=== PATIENT | male | born 1930 | race Caucasian/White ===

== ENCOUNTER → 2017-08-31 | Outpatient (CLI) | payer MEDICARE, OTHER ==
[2017-05-14 10:27] VITALS: BMI 26.6
[~2017-08-31] MED LIST: ACET-1862 PO; ACET-3017 PO; AMLO-96 PO; AMLO2.5T74 PO; ASPI81TA94 PO; ATOR20TA65 PO; CAR3.125 PO; CARV12.578 PO; CEPH-13 PO; CIPR-214 PO; CIPR-344 PO; DOCU-416 PO; FAMO-67 PO; FAMO20TA28 PO; HYDR-385 PO; HYDR-389 PO; HYDR-6016 PO; IBUP1TAB90 PO; IBUP800T37 PO; ONDA8TAB98 PO; PENI-24 PO; PHEN200T32 PO; SULF-198 PO; TAMS0.4C70 PO
== END ==
LOC: LAB 10:54
DX: N30.01 Acute cystitis with hematuria (principal)
CPT/HCPCS: 81001; 87088

== ENCOUNTER → 2018-04-15 | Outpatient (CLI) | payer MEDICARE, OTHER ==
[2017-05-14 10:27] VITALS: BMI 26.6
--- NOTE | 2018-04-15 16:38 | RADIOLOGY IMAGING REPORT ---
FACILITY: [facility] PATIENT NAME: Rui Nelson : 1930 MR: [id number] V: [id number] EXAM DATE: ORDERING PHYSICIAN: JOIE REDDY TECHNOLOGIST: [place] [facility] [place]ui [place] : 1930 Visit/Account:[id number] Date of Sevice: 04/15/2018 EXAMINATION: Left hip, 3 views including AP pelvis 04/15/2018 3:18 PM HISTORY: Left hip pain. Previous JOELLE. COMPARISON: None FINDINGS: Images include AP and frog-leg hip as well as AP pelvis. Lower AP view was also done to i nclude distal femoral ORIF. Patient status post JOELLE which articulates well. Minimal lucency along t he distal stem without definitive radiographic features of loosening. The patient has side plate and screw fixation of the distal femur and cerclage wiring along the diaphysis. The distal fracture is well-healed with residual posttraumatic cortical deformity. No acute bony finding within the pelvis. Pelvic calcifications presumably are phleboliths. IMPRESSION: 1. Previous left JOELLE which articulates well. Subtle lucency around the distal end of the femoral st em but no definitive features of loosening. 2. Previous ORIF of the distal left femur. Report Dictated By: Antonio Hurley MD at 04/15/2018 4:32 PM Report E-Signed By: Antonio Hurley MD at 04/15/2018 4:34 PM WSN:[email or web address]
== END ==
LOC: RAD 15:12
PROVIDERS: ATTEND Family Medicine
DX: Z96.642 Presence of left artificial hip joint (principal)

== ENCOUNTER 2018-05-26 10:39 | Emergency (ER) | payer MEDICARE, OTHER ==
[2017-05-14 10:27] VITALS: Wt 68.0 kg
[~2018-05-26 10:39] MED LIST changes: +AMLO-111 PO; -AMLO-96 PO; -AMLO2.5T74 PO; +AMLO2.5T76 PO
[2018-05-26] MEDS ORDERED: ENT KIT ONE (10:44)
[2018-05-26] MEDS ORDERED: ATOR20TA65 (10:53)
[2018-05-26] MEDS ORDERED: TRAM-420 (10:53)
--- NOTE | 2018-05-26 11:02 | ER Report ---
History and Physical Time Seen By MD: 10:59 Hx. of Stated Complaint: Patient woke up with nose bleed. States it has stopped now. HPI/ROS CHIEF COMPLAINT: Epistaxis HISTORY OF PRESENT ILLNESS: He is an 88-year-old male who states he woke up this morning and his nose was bleeding. He denies any traumatic injury. He denies any prior history of nosebleeds. He states that he is not on any anticoagulation. Denies any other symptoms. REVIEW OF SYSTEMS: Constitutional: No fever, no chills. Eyes: No discharge. ENT: No sore throat. Nosebleed Cardiovascular: No chest pain, no palpitations. Respiratory: No cough, no shortness of breath. Gastrointestinal: No abdominal pain, no vomiting. Allergies: Coded Allergies: No Known Drug Allergies (Unverified , 05/26/18) Home Meds Reported Medications Tramadol Hcl (TRAMADOL HCL) 50 Mg Tablet 05/26/18 Atorvastatin Calcium (ATORVASTATIN CALCIUM) 20 Mg Tablet 05/26/18 Acetaminophen (ARTHRITIS PAIN RELIEVER) 650 Mg Tablet.er, 650 MG PO BID 11/09/16 Tamsulosin Hcl (TAMSULOSIN HCL) 0.4 Mg Cap.er.24h, 0.4 MG PO DAILY, CAP 11/09/16 Discontinued Reported Medications Phenazopyridine Hcl (PHENAZOPYRIDINE HCL) 200 Mg Tablet, 200 MG PO TID PRN for SPASMS, #30 TAB 05/14/17 Famotidine (PEPCID) 20 Mg Tablet, 20 MG PO BID, #20 TAB 05/14/17 Sulfamethoxazole/Trimet 800-160 Mg Tab (BACTRIM DS TABLET) 1 Each Tablet, 1 TAB PO Q12H, #40 TAB 05/14/17 Acetaminophen With Codeine # 3 (TYLENOL WITH CODEINE #3 TABLET) 1 Each Tablet, 1 EACH PO Q6H PRN for PAIN, #20 TAB 05/14/17 Sulfamethoxazole/Trimet 800-160 Mg Tab (BACTRIM DS TABLET) 1 Each Tablet, 1 TAB PO BID, #30 TAB 05/11/17 Carvedilol (CARVEDILOL) 3.125 Mg Tab, 3.125 MG PO BID, TAB 11/09/16 Aspirin (ASPIRIN) 81 Mg Tab.chew, 81 MG PO QDAY, TAB.CHEW 05/28/16 Past Medical/Surgical History Hypertension Hx Smoking: Yes (2/3 PPD) Smoking Status: Current: Every Day Smoker Exposure to Second Hand Smoke?: No Hx Substance Use Disorder: No Hx Alcohol Use: No Constitutional Vital Sign - Last 24 Hours 05/26/18 05/26/18 05/26/18 05/26/18 10:44 10:45 11:00 11:30 Temp 98.6 Pulse 83 98 96 Resp 16 B/P (MAP) 192/98 168/102 (124) 145/102 (116) Pulse Ox 94 91 O2 Delivery Room Air Physical Exam General Appearance: The patient is alert, has no immediate need for airway protection and no current signs of toxicity. Eyes: Pupils equal and round no injection. ENT: TMs and canals clear bilaterally. Oropharynx is clear. Naris shows some oozing of blood at Kiesselbach's plexus mostly on the right naris. Respiratory: Chest is non tender, lungs are clear to auscultation. Cardiac: regular rate and rhythm [ ] Medical Decision Making ED Course/Re-evaluation ED Course 05/26/2018 11:01:50 am plan at this time will be to place a Kalyan-Synephrine lizandro al spray along with bacitracin. We'll observe the patient in the emergency department to determine if there will be need for further procedure 05/26/2018 11:25:42 am no further bleeding or discharge patient at this time. Decision to Disposition Date: May 26, 2018 Decision to Disposition Time: 11:25 Depart Departure Latest Vital Signs Vital Signs Date Time Temp Pulse Resp B/P (MAP) Pulse Ox O2 Delivery O2 Flow Rate FiO2 05/26/18 11:30 96 145/102 (116) 05/26/18 10:45 91 05/26/18 10:44 98.6 16 Room Air Impression: Primary Impression: Epistaxis Condition: Improved Disposition: HOME OR SELF-CARE Referrals: JOIE REDDY MD (PCP) Follow-up for your next routine health maintenance exam. Patient Instructions: Nosebleed (GEN) Additional Instructions: Take your prescription medications as directed. TUCKER BRAVO MD May 26, 2018 11:02
[2018-05-26 11:30] VITALS: BP 145/102
[2018-05-26] MEDS ORDERED: OXYMETAZOLINE 0.05% 30 ML BTL SCH (11:30)
[2018-05-26] MEDS ORDERED: PHENYLEPHRINE 0.5% 15 ML BTL ONE (11:45)
== END 2018-05-26 11:38 | disposition home or self-care (01) ==
LOC: ER 11:11
DX: R04.0 Epistaxis (principal)
CPT/HCPCS: 30901; 99282; A9270

== ENCOUNTER 2018-05-27 12:39 | Emergency (ER) | payer MEDICARE, OTHER ==
[2017-05-14 10:27] VITALS: Wt 68.0 kg
--- NOTE | 2018-05-27 12:47 | ER Report ---
History and Physical Time Seen By MD: 12:47 HPI/ROS CHIEF COMPLAINT: Weakness HISTORY OF PRESENT ILLNESS: This is an 88-year-old male who presents to the emergency department via EMS for weakness. Patient was seen and evaluated in the emergency department yesterday for nosebleed which did resolve. Patient states that last night he got up around 12:30 in the morning to go to the bathroom, the next thing he knows he woke up on the ground unsure if he was there for an extended period of time, did call his daughter she came over around 1:00 a ssisted him to bed, patient then got up this morning with some generalized weakness not feeling well, got to his lazy boy and states that he was just unable to get up after that. Patient called his daughter again. They contacted EMS, the patient was subsequently transferred to the emergency Department. Patient denies headaches, no C-spine tenderness. Patient does have left hip pain, he states that this does happen intermittently with his previous total hip replacement. He also has right shoulder pain which is intermittent as well due to arthritis. No fevers or chills. No nausea or vomiting. No chest pain or shortness of breath. No nosebleed today. Patient states that his stool was dark last night, he feels that this is from swallowing so much blood during his nosebleed yesterday. No active bleeding at this time. Patient was noted to have bigeminal beats and hypertension en route to the ER. REVIEW OF SYSTEMS: Constitutional: No fever, no chills. Eyes: No discharge. ENT: No sore throat. Cardiovascular: No chest pain, no palpitations. Respiratory: No cough, no shortness of breath. Gastrointestinal: No abdominal pain, no vomiting. Genitourinary: No hematuria. Musculoskeletal: As above. Skin: No rashes. Neurological: As above.. Allergies: Coded Allergies: No Known Drug Allergies (Unverified , 05/27/18) Home Meds Reported Medications Tramadol Hcl (TRAMADOL HCL) 50 Mg Tablet 05/26/18 Atorvastatin Calcium (ATORVASTATIN CALCIUM) 20 Mg Tablet 05/26/18 Acetaminophen (ARTHRITIS PAIN RELIEVER) 650 Mg Tablet.er, 650 MG PO BID 11/09/16 Tamsulosin Hcl (TAMSULOSIN HCL) 0.4 Mg Cap.er.24h, 0.4 MG PO DAILY, CAP 11/09/16 Discontinued Reported Medications Phenazopyridine Hcl (PHENAZOPYRIDINE HCL) 200 Mg Tablet, 200 MG PO TID PRN for SPASMS, #30 TAB 05/14/17 Famotidine (PEPCID) 20 Mg Tablet, 20 MG PO BID, #20 TAB 05/14/17 Sulfamethoxazole/Trimet 800-160 Mg Tab (BACTRIM DS TABLET) 1 Each Tablet, 1 TAB PO Q12H, #40 TAB 05/14/17 Acetaminophen With Codeine # 3 (TYLENOL WITH CODEINE #3 TABLET) 1 Each Tablet, 1 EACH PO Q6H PRN for PAIN, #20 TAB 05/14/17 Sulfamethoxazole/Trimet 800-160 Mg Tab (BACTRIM DS TABLET) 1 Each Tablet, 1 TAB PO BID, #30 TAB 05/11/17 Carvedilol (CARVEDILOL) 3.125 Mg Tab, 3.125 MG PO BID, TAB 11/09/16 Aspirin (ASPIRIN) 81 Mg Tab.chew, 81 MG PO QDAY, TAB.CHEW 05/28/16 Past Medical/Surgical History The patient has a past medical and surgical history of CVA, hypertension, frequent PVCs, hypercholesterolemia, smoking for over 7 years, chronic constipation, GERD, bladder cancer, with frequency urgency and dribbling, prostatitis, left ankle fracture, arthritis, left wrist fracture, pelvis fracture, femur fracture with hardware wears glasses, hard of hearing, wears dentures, chemotherapy for bladder cancer, left total hip with revisions 3. Reviewed Nurses Notes: Yes Hx Smoking: Yes (2/3 PPD) Smoking Status: Current: Every Day Smoker Exposure to Second Hand Smoke?: No Hx Substance Use Disorder: No Hx Alcohol Use: No Constitutional Vital Sign - Last 24 Hours 05/27/18 05/27/18 05/27/18 05/27/18 12:40 12:44 12:54 13:00 Temp 98.0 Pulse 71 Resp 18 38 B/P (MAP) 185/100 185/100 (128) 174/97 (122) Pulse Ox 95 78 O2 Delivery Room Air 05/27/18 05/27/18 05/27/18 05/27/18 13:09 13:14 13:29 13:30 Pulse 72 74 Resp 17 20 18 B/P (MAP) 159/108 (125) Pulse Ox 89 91 90 05/27/18 05/27/18 05/27/18 05/27/18 13:44 13:49 14:00 14:04 Pulse 73 75 63 Resp 18 20 B/P (MAP) 200/103 (135) Pulse Ox 91 95 96 05/27/18 05/27/18 05/27/18 05/27/18 14:19 14:30 14:34 14:39 Pulse 77 66 65 Resp 16 17 36 B/P (MAP) 168/85 (112) Pulse Ox 96 87 94 05/27/18 05/27/18 05/27/18 05/27/18 14:54 15:00 15:09 15:30 Pulse 66 77 Resp 29 16 B/P (MAP) 186/101 (129) 162/115 (131) Pulse Ox 89 94 05/27/18 05/27/18 05/27/18 05/27/18 15:39 15:44 15:54 15:59 Pulse 67 63 55 Resp 25 23 20 B/P (MAP) 193/102 (132) 178/98 (124) Pulse Ox 95 97 96 Physical Exam General Appearance: The patient is alert, has no immediate need for airway protection and no signs of toxicity, now wearing his dentures, difficult to understand. Eyes: Pupils equal and round no pallor or injection. EOMs intact, slight 1-2 beat nystagmus in the lateral gaze bilaterally, otherwise unremarkable. ENT, Mouth: Mucous membranes are dry, geographic tongue. All teeth have been removed. Respiratory: There are no retractions, lungs are clear to auscultation. Cardiovascular: Regular rate and rhythm, distant, no murmurs, clicks or rubs. Gastrointestinal: Abdomen is soft and non tender, no masses, bowel sounds normal. Neurological: Alert and oriented 4. Moving all extremities. Following all commands. No focal neuro deficits. No pronator drift. Sensation intact in all extremities. No facial droop or deviation of the tongue. Skin: Warm and dry, no rashes. Musculoskeletal: Neck is supple non tender. Extremities slight tenderness with very firm palpation. Left hip, left leg is notably shorter than the right. DIFFERENTIAL DIAGNOSIS: After history and physical exam differential diagnosis was considered for CVA, TIA, myocardial infarction, syncopal episode, vasovagal and hip dislocation. Medical Decision Making Data Points Result Diagram: 05/27/18 1230 05/27/18 1230 Laboratory Hematology Test 05/27/18 12:30 05/27/18 15:18 Red Blood Count 4.34 M/uL (4.00-5.60) Mean Corpuscular Volume 94.7 fL (80.0-96.0) Mean Corpuscular Hemoglobin 32.1 pg (26.0-33.0) Mean Corpuscular Hemoglobin Concent 33.9 g/dL (32.0-36.0) Red Cell Distribution Width 14.0 % (11.5-14.5) Mean Platelet Volume 10.3 fL (7.2-11.1) Neutrophils (%) (Auto) 49.7 % (39.4-72.5) Lymphocytes (%) (Auto) 39.4 % (17.6-49.6) Monocytes (%) (Auto) 7.0 % (4.1-12.4) Eosinophils (%) (Auto) 3.3 % (0.4-6.7) Basophils (%) (Auto) 0.6 % (0.3-1.4) Nucleated RBC Relative Count (auto) 0.1 /100WBC Neutrophils # (Auto) 4.6 K/uL (2.0-7.4) Lymphocytes # (Auto) 3.6 K/uL (1.3-3.6) Monocytes # (Auto) 0.6 K/uL (0.3-1.0) Eosinophils # (Auto) 0.3 K/uL (0.0-0.5) Basophils # (Auto) 0.1 K/uL (0.0-0.1) Nucleated RBC Absolute Count (auto) 0.01 K/uL Sodium Level 141 mmol/L (137-145) Potassium Level 3.2 mmol/L (3.5-5.0) Chloride Level 105 mmol/L (98-107) Carbon Dioxide Level 20 mmol/L (22-30) Blood Urea Nitrogen 36 mg/dl (9-21) Creatinine 2.90 mg/dl (0.66-1.25) Glomerular Filtration Rate Calc 20.7 Random Glucose 112 mg/dl (75-110) Calcium Level 8.6 mg/dl (8.4-10.2) Magnesium Level 2.1 mg/dl (1.7-2.2) Total Bilirubin 0.9 mg/dl (0.2-1.3) Aspartate Amino Transf (AST/SGOT) 38 U/L (0-35) Alanine Aminotransferase (ALT/SGPT) 45 U/L (0-56) Alkaline Phosphatase 137 U/L (0-126) Troponin I < 0.012 ng/ml Total Protein 7.4 g/dl (6.3-8.2) Albumin 4.4 g/dl (3.5-5.0) Urine Color Yellow Urine Clarity Slightly-cloudy Urine pH 5.0 pH (4.8-9.5) Urine Specific [place] 1.016 Urine Protein 30 mg/dL (NEGATIVE) Urine Glucose (UA) Negative mg/dL (NEGATIVE) Urine Ketones Negative mg/dL (NEGATIVE) Urine Blood Small (NEGATIVE) Urine Nitrite Negative (NEGATIVE) Urine Bilirubin Negative (NEGATIVE) Urine Urobilinogen Negative mg/dL (0.2-1.9) Urine Leukocyte Esterase Small (NEGATIVE) Urine RBC 1 /HPF (0-2/HPF) Urine WBC 13 /HPF (0-5/HPF) Urine Squamous Epithelial Cells Many /LPF (</=FEW) Urine Bacteria Negative /HPF (NONE-FEW) Urine Mucus None /HPF (NONE-FEW) Chemistry Test 05/27/18 12:30 05/27/18 15:18 White Blood Count 9.2 k/uL (4.5-11.0) Red Blood Count 4.34 M/uL (4.00-5.60) Hemoglobin 13.9 g/dL (14.0-18.0) Hematocrit 41.1 % (42.0-52.0) Mean Corpuscular Volume 94.7 fL (80.0-96.0) Mean Corpuscular Hemoglobin 32.1 pg (26.0-33.0) Mean Corpuscular Hemoglobin Concent 33.9 g/dL (32.0-36.0) Red Cell Distribution Width 14.0 % (11.5-14.5) Platelet Count 163 K/uL (150-450) Mean Platelet Volume 10.3 fL (7.2-11.1) Neutrophils (%) (Auto) 49.7 % (39.4-72.5) Lymphocytes (%) (Auto) 39.4 % (17.6-49.6) Monocytes (%) (Auto) 7.0 % (4.1-12.4) Eosinophils (%) (Auto) 3.3 % (0.4-6.7) Basophils (%) (Auto) 0.6 % (0.3-1.4) Nucleated RBC Relative Count (auto) 0.1 /100WBC Neutrophils # (Auto) 4.6 K/uL (2.0-7.4) Lymphocytes # (Auto) 3.6 K/uL (1.3-3.6) Monocytes # (Auto) 0.6 K/uL (0.3-1.0) Eosinophils # (Auto) 0.3 K/uL (0.0-0.5) Basophils # (Auto) 0.1 K/uL (0.0-0.1) Nucleated RBC Absolute Count (auto) 0.01 K/uL Glomerular Filtration Rate Calc 20.7 Calcium Level 8.6 mg/dl (8.4-10.2) Magnesium Level 2.1 mg/dl (1.7-2.2) Total Bilirubin 0.9 mg/dl (0.2-1.3) Aspartate Amino Transf (AST/SGOT) 38 U/L (0-35) Alanine Aminotransferase (ALT/SGPT) 45 U/L (0-56) Alkaline Phosphatase 137 U/L (0-126) Troponin I < 0.012 ng/ml Total Protein 7.4 g/dl (6.3-8.2) Albumin 4.4 g/dl (3.5-5.0) Urine Color Yellow Urine Clarity Slightly-cloudy Urine pH 5.0 pH (4.8-9.5) Urine Specific [place] 1.016 Urine Protein 30 mg/dL (NEGATIVE) Urine Glucose (UA) Negative mg/dL (NEGATIVE) Urine Ketones Negative mg/dL (NEGATIVE) Urine Blood Small (NEGATIVE) Urine Nitrite Negative (NEGATIVE) Urine Bilirubin Negative (NEGATIVE) Urine Urobilinogen Negative mg/dL (0.2-1.9) Urine Leukocyte Esterase Small (NEGATIVE) Urine RBC 1 /HPF (0-2/HPF) Urine WBC 13 /HPF (0-5/HPF) Urine Squamous Epithelial Cells Many /LPF (</=FEW) Urine Bacteria Negative /HPF (NONE-FEW) Urine Mucus None /HPF (NONE-FEW) Urinalysis Test 05/27/18 15:18 Urine Color Yellow Urine Clarity Slightly-cloudy Urine pH 5.0 pH (4.8-9.5) Urine Specific [place] 1.016 Urine Protein 30 mg/dL (NEGATIVE) Urine Glucose (UA) Negative mg/dL (NEGATIVE) Urine Ketones Negative mg/dL (NEGATIVE) Urine Blood Small (NEGATIVE) Urine Nitrite Negative (NEGATIVE) Urine Bilirubin Negative (NEGATIVE) Urine Urobilinogen Negative mg/dL (0.2-1.9) Urine Leukocyte Esterase Small (NEGATIVE) Urine RBC 1 /HPF (0-2/HPF) Urine WBC 13 /HPF (0-5/HPF) Urine Squamous Epithelial Cells Many /LPF (</=FEW) Urine Bacteria Negative /HPF (NONE-FEW) Urine Mucus None /HPF (NONE-FEW) EKG/Imaging EKG Interpretation 12 lead EKG: Time of EKG 1242. Rhythm: Sinus rhythm with frequent PVCs, ventricular rate 85 bpm. [place]: normal QRS: normal ST segments: No ST depression or elevation identified. Changes noted on the current EKG when compared to the 11/16/2016 EKG, previous EKG showing no signs of PVCs, also showing a 1st degree AV block, currently no 1st degree AV block identified. Imaging Location: [facility] - [place] Patient: Rui Nelson : 1930 Visit/Account:[id number] Date of Sevice: 05/27/2018 CHEST SINGLE AP INDICATION: Recent fall COMPARISON: 11/16/2016 FINDINGS: Heart size within normal limits. There is no focal infiltrate or lobar consolidation. There is no pneumothorax or pleural effusion. IMPRESSION: 1. No acute cardiopulmonary process. Report Dictated By: Cornel Reed at 05/27/2018 1:57 PM Report E-Signed By: Cornel Reed at 05/27/2018 1:58 PM WSN:[id number] Location: [facility] - [place] Patient: Rui Nelson : 1930 Visit/Account:[id number] Date of Sevice: 05/27/2018 EXAMINATION: CT head without IV contrast HISTORY: Fall last night, weakness today, unsure if loss of consciousness. COMPARISON: CT head from 01/23/2016. TECHNIQUE: Contiguous axial images were obtained from the skull base to the vertex without intravenous contrast. Sagittal and coronal reformatted images are also submitted. One of the following dose optimization techniques was utilized in the performance of this exam: Automated exposure control; adjustment of the mA and/or kV according to the patient's size; or use of an iterative reconstruction technique. Specific details can be referenced in the facility's radiology CT exam operational policy. FINDINGS: Brain volume: Mild generalized atrophy with associated concordant prominence of the ventricular system. Ventricles: Normal. Acute ischemic changes: None. Hemorrhage: No acute intracranial hemorrhage. Masses/edema: None. Rehman-white: Chronic lacunar infarcts in both basal ganglia and a small chronic infarct in the left posterior frontal lobe. White matter: Patchy hypodensities in the deep white matter bilaterally. Vessels: Calcified plaque of both carotid siphons. Extra-axial: Negative. Calvarium/scalp: No acute fracture. Skull base/visualized face: Negative. Visualized sinuses/orbits: Mild patchy mucosal thickening of the paranasal sinuses. There is mild nasal septal deviation to the left. Previous lens surgery bilaterally. IMPRESSION: 1. No acute fracture, hemorrhage or intracranial mass lesion. No CT evidence of acute infarct. 2. Moderate nonspecific white matter disease is suspicious for chronic small vessel ischemia and is unchanged. 2. Chronic lacunar infarcts in both basal ganglia and a small chronic infarct in the left posterior frontal lobe are unchanged. Report Dictated By: Carina Main MD at 05/27/2018 2:05 PM Report E-Signed By: Carina Main MD at 05/27/2018 2:15 PM WSN:[id number] Location: [facility] - [place] Patient: Rui Nelson : 1930 Visit/Account:[id number] Date of Sevice: 05/27/2018 HIP LEFT Indication: Pain after fall Comparison: None available Findings: There is a two part JOELLE. Addition, lateral femoral plate and cerclage wires are noted. Mild protrusio defect is seen involving the acetabulum. No acute fractures identified. IMPRESSION: 1. No evidence of fracture or dislocation of the patient's left total hip arthroplasty Report Dictated By: Cornel Reed at 05/27/2018 2:16 PM Report E-Signed By: Cornel Reed at 05/27/2018 2:17 PM WSN:[email or web address] ED Course/Re-evaluation Clinical Indication for ER IV: Hydration, IV Access ED Course The patient was admitted to a room. History and physical were obtained. Differential diagnoses were considered. IV was started. A CBC, CMP were obtained. A 500 mL normal saline bolus was given. H&H 13.9 and 41.1, consistent with his previous H&H studies. Potassium 3.2, BUN 36, creatinine 2.9, these are consistent with previous chemistry studies. Negative troponin. CT of the head wa s negative for any acute intracranial abnormalities, single view chest x-ray negative for any acute cardiopulmonary process. Left hip and pelvis showing no acute changes from previous surgeries, no acute findings. I did review the xrays with the patient and his family, I did tell them it is possible he had a near syncopal episode from decreased fluid intake. He did respond well to the bolus given in the ED. UA contaminated with some blood noted, I did send out for a culture. The patient's blood pressure did remain elevated while in the ED, he states he does take his BP meds in the AM, did take them today. Currently he is asymptomatic. I did end up giving 10mg IV Labetalol, which did bring his last pressure down to 170/98. I did instruct him to follow up with his PCP next week for reevaluation as well as further discussion of his blood pressures. The patient expressed understanding and was discharged home with his daughter. Decision to Disposition Date: May 27, 2018 Decision to Disposition Time: 16:05 Depart Departure Latest Vital Signs Vital Signs Date Time Temp Pulse Resp B/P (MAP) Pulse Ox O2 Delivery O2 Flow Rate FiO2 05/27/18 15:59 55 20 178/98 (124) 96 05/27/18 12:40 98.0 Room Air Impression: Primary Impression: Left hip pain Additional Impression: Fall Condition: Improved Disposition: HOME OR SELF-CARE Referrals: JOIE REDDY MD (PCP) 1 Week Patient Instructions: Fall Prevention (ED), Fall Prevention for Older Adults (GEN) Additional Instructions: Your blood work today is unchanged from your previous studies. Be sure to keep your follow appointment with your chemical checker. Follow up with Dr. Reddy in one week for reevaluation. Be sure to use the walker. The episode you had last night could have been because you are not drink enough water and had a fainting spell, so be sure to drink plenty of water. Get plenty of rest. Return to the ED for any other concerns or worsening symptoms. Problem Qualifiers Additional Impression: Fall Encounter type: initial encounter Qualified Codes: W19.XXXA - Unspecified fall, initial encounter BERNARD CAST GRINDER-BC May 27, 2018 12:47
[2018-05-27] MEDS ORDERED: NS(*) 0.9% 500 ML BAG 500 ML IV ONE ×2 (13:07→14:30)
[2018-05-27 13:18] LABS: PLATELET COUNT, AUTOMATED 163 K/uL (150-450)
--- NOTE | 2018-05-27 13:20 | EKG ---
FACILITY: [facility] - [place] PATIENT NAME: JOE BARAJAS : [id number] MR: [id number] V: [id number] EXAM DATE: ORDERING PHYSICIAN: BERNARD CAST TECHNOLOGIST: KATEY Test Reason : FELL Blood Pressure : / mmHG Vent. Rate : 085 BPM Atrial Rate : 085 BPM P-R Int : 180 ms QRS Dur : 080 ms QT Int : 380 ms P-R-T Axes : 061 069 061 degrees QTc Int : 452 ms Sinus rhythm with frequent premature ventricular complexes Otherwise normal ECG Confirmed by CHRISTINE FULLER ([id number]) on 05/27/2018 1:34:49 PM Referred By: LAWRENCE Confirmed By:CHRISTINE FULLER
--- NOTE | 2018-05-27 14:03 | RADIOLOGY IMAGING REPORT ---
FACILITY: [facility] - [place] PATIENT NAME: Rui Nelson : 1930 MR: [id number] V: [id number] EXAM DATE: ORDERING PHYSICIAN: BERNARD CAST TECHNOLOGIST: Location: [facility] - [place] Patient: Rui Nelson : 1930 Visit/Account:[id number] Date of Sevice: 05/27/2018 CHEST SINGLE AP INDICATION: Recent fall COMPARISON: 11/16/2016 FINDINGS: Heart size within normal limits. There is no focal infiltrate or lobar consolidation. There is no pneumothorax or pleural effusion. IMPRESSION: 1. No acute cardiopulmonary process. Report Dictated By: Cornel Reed at 05/27/2018 1:57 PM Report E-Signed By: Cornel Reed at 05/27/2018 1:58 PM WSN:[email or web address]
--- NOTE | 2018-05-27 14:21 | RADIOLOGY IMAGING REPORT ---
FACILITY: [facility] - [place], [place] PATIENT NAME: Rui Nelson : 1930 MR: [id number] V: [id number] EXAM DATE: [id number] ORDERING PHYSICIAN: BERNARD CAST TECHNOLOGIST: Location: [facility] [place] Patient: Rui Nelson : 1930 Visit/Account:[id number] Date of Sevice: 05/27/2018 EXAMINATION: CT head without IV contrast HISTORY: Fall last night, weakness today, unsure if loss of consciousness. COMPARISON: CT head from 01/23/2016. TECHNIQUE: Contiguous axial images were obtained from the skull base to the vertex without intraven ous contrast. Sagittal and coronal reformatted images are also submitted. One of the following dose optimization techniques was utilized in the performance of this exam: Autom ated exposure control; adjustment of the mA and/or kV according to the patient's size; or use of an i terative reconstruction technique. Specific details can be referenced in the facility's radiology C T exam operational policy. FINDINGS: Brain volume: Mild generalized atrophy with associated concordant prominence of the ventricular syst em. Ventricles: Normal. Acute ischemic changes: None. Hemorrhage: No acute intracranial hemorrhage. Masses/edema: None. Rehman-white: Chronic lacunar infarcts in both basal ganglia and a small chronic infarct in the left po sterior frontal lobe. White matter: Patchy hypodensities in the deep white matter bilaterally. Vessels: Calcified plaque of both carotid siphons. Extra-axial: Negative. Calvarium/scalp: No acute fracture. Skull base/visualized face: Negative. Visualized sinuses/orbits: Mild patchy mucosal thickening of the paranasal sinuses. There is mild n clint septal deviation to the left. Previous lens surgery bilaterally. IMPRESSION: 1. No acute fracture, hemorrhage or intracranial mass lesion. No CT evidence of acute infarct. 2. Moderate nonspecific white matter disease is suspicious for chronic small vessel ischemia and is unchanged. 2. Chronic lacunar infarcts in both basal ganglia and a small chronic infarct in the left posterior frontal lobe are unchanged. Report Dictated By: Carina Main MD at 05/27/2018 2:05 PM Report E-Signed By: Carina Main MD at 05/27/2018 2:15 PM [id number]
--- NOTE | 2018-05-27 14:23 | RADIOLOGY IMAGING REPORT ---
FACILITY: [facility] PATIENT NAME: Rui Nelson : 1930 MR: [id number] V: [id number] EXAM DATE: ORDERING PHYSICIAN: BERNARD CAST TECHNOLOGIST: Location: [facility] Patient: Rui Nelson : 1930 Visit/Account:[id number] Date of Sevice: 05/27/2018 HIP LEFT Indication: Pain after fall Comparison: None available Findings: There is a two part JOELLE. Addition, lateral femoral plate and cerclage wires are noted. Mild protrus io defect is seen involving the acetabulum. No acute fractures identified. IMPRESSION: 1. No evidence of fracture or dislocation of the patient's left total hip arthroplasty Report Dictated By: Cornel Reed at 05/27/2018 2:16 PM Report E-Signed By: Cornel Reed at 05/27/2018 2:17 PM [id number]
[2018-05-27] MEDS ORDERED: LABETALOL HCL 100 MG/20ML VIAL IVP ONE (15:50)
[2018-05-27 15:59] VITALS: BP 178/98
[2018-05-28] MEDS ORDERED: AMLO-111 PO (21:28)
== END 2018-05-27 16:05 | disposition home or self-care (01) ==
LOC: ER 12:59
DX: M25.552 Pain in left hip (principal); R03.0 Elevated blood-pressure reading, without diagnosis of hypertension; W19.XXXA Unspecified fall, initial encounter
CPT/HCPCS: 70450; 71045; 73502; 81001; 83735; 84484; 85025; 87088; 93005; 96361; 96374; 99284; J3490; J7040; 82040; 82247; 82310; 82374; 82435; 82565; 82947; 84075; 84132; 84155; 84295; 84450; 84460; 84520

== ENCOUNTER → 2018-05-27 | Outpatient (CLI) | payer MEDICARE, OTHER ==
[2017-05-14 10:27] VITALS: BMI 26.6
[~2018-05-27] MED LIST changes: +ATOR20TA65; +TRAM-420
== END ==
LOC: AMB 12:12
PROVIDERS: ATTEND Nurse Practitioner
DX: R53.1 Weakness (principal); R42 Dizziness and giddiness
CPT/HCPCS: A0425; A0427

== ENCOUNTER 2018-05-28 20:15 | Emergency (ER) | payer MEDICARE, OTHER ==
[2017-05-14 10:27] VITALS: Wt 68.0 kg
[~2018-05-28 20:15] MED LIST changes: -DOCU100T19 PO
--- NOTE | 2018-05-28 20:18 | ER Report ---
History and Physical Time Seen By MD: :18 HPI/ROS CHIEF COMPLAINT: nosebleed HISTORY OF PRESENT ILLNESS: This is an 88 year old male. He has a nose bleed tonight, for about an hour prior to coming in, unable to get it stopped. Was here in the ER 2 days ago for the same. Conservative measures helped it stop. Blood pressure has been elevated, but he is not on anything for this now. No other bleeding. He is not on blood thinners. No chest pain or shortness of breath. Allergies: Coded Allergies: No Known Drug Allergies (Unverified , 05/28/18) Home Meds Active Scripts Amlodipine Besylate (AMLODIPINE BESYLATE) 5 Mg Tablet, 1 TAB PO QDAY, #30 TAB 0 Refills Prov:EDSON UMAÑA MD 05/28/18 Reported Medications Tramadol Hcl (TRAMADOL HCL) 50 Mg Tablet 05/26/18 Atorvastatin Calcium (ATORVASTATIN CALCIUM) 20 Mg Tablet 05/26/18 Acetaminophen (ARTHRITIS PAIN RELIEVER) 650 Mg Tablet.er, 650 MG PO BID 11/09/16 Tamsulosin Hcl (TAMSULOSIN HCL) 0.4 Mg Cap.er.24h, 0.4 MG PO DAILY, CAP 11/09/16 Discontinued Reported Medications Phenazopyridine Hcl (PHENAZOPYRIDINE HCL) 200 Mg Tablet, 200 MG PO TID PRN for SPASMS, #30 TAB 05/14/17 Famotidine (PEPCID) 20 Mg Tablet, 20 MG PO BID, #20 TAB 05/14/17 Sulfamethoxazole/Trimet 800-160 Mg Tab (BACTRIM DS TABLET) 1 Each Tablet, 1 TAB PO Q12H, #40 TAB 05/14/17 Acetaminophen With Codeine # 3 (TYLENOL WITH CODEINE #3 TABLET) 1 Each Tablet, 1 EACH PO Q6H PRN for PAIN, #20 TAB 05/14/17 Sulfamethoxazole/Trimet 800-160 Mg Tab (BACTRIM DS TABLET) 1 Each Tablet, 1 TAB PO BID, #30 TAB 05/11/17 Carvedilol (CARVEDILOL) 3.125 Mg Tab, 3.125 MG PO BID, TAB 11/09/16 Aspirin (ASPIRIN) 81 Mg Tab.chew, 81 MG PO QDAY, TAB.CHEW 05/28/16 Reviewed Nurses Notes: Yes Hx Smoking: Yes (2/3 PPD) Smoking Status: Current: Every Day Smoker Exposure to Second Hand Smoke?: No Hx Substance Use Disorder: No Hx Alcohol Use: No Constitutional Vital Sign - Last 24 Hours 05/28/18 05/28/18 05/28/18 05/28/18 20:15 20:15 20:30 20:45 Temp 98.4 Pulse ??? 93 93 80 Resp 20 B/P (MAP) 208/112 (144) 208/112 Pulse Ox 95 92 91 O2 Delivery Room Air 05/28/18 05/28/18 05/28/18 05/28/18 21:00 21:08 21:13 21:28 Pulse 81 81 93 B/P (MAP) 173/90 (117) Pulse Ox 93 91 91 05/28/18 05/28/18 21:30 21:43 Pulse ??? B/P (MAP) 210/112 (144) Physical Exam General Appearance: The patient is alert, has no immediate need for airway protection and no current signs of toxicity. Eyes: Pupils equal and round no injection. ENT: Normal oral mucosa. Blood in post-nasal area. Nose with lots of clots and oozing from right nasal passage. Unable to see bleeding on initial evaluation. Neck: Neck is supple and non tender. Respiratory: Chest is non tender, lungs are clear to auscultation. Cardiac: regular rate and rhythm Neuro: Alert and oriented x3 Skin: No rashes or lesions. No bruising. DIFFERENTIAL DIAGNOSIS: After history and physical exam differential diagnosis w as considered for epistaxis and hypertension Medical Decision Making ED Course/Re-evaluation ED Course Blood pressure elevated so the patient was started on 5 mg of amlodipine and will be continued on this medication. Procedure: Epistaxis control. Initially treated with compression with a nasal clamp. The patient had continued bleeding. We then used Neosynephrine nasal spray to try and acheive some vasoconstriction to slow or stop the bleeding. We also used some atomized 1% lidocaine with epinephrine, 0.5cc in the nasal passage. Also atomized 1 cc of tranexamic acid into the nasal passage. Then applied cotton ball soaked with Marte eczema casted in the nasal passage and reapplied the clamp. Reevaluated and there was no further bleeding. Applied some bacitracin ointment to the outside of the anterior of the right nasal passage. The bleeding was identified and was on the anterior nasal septum. Following the procedure the patient was re- examined and the bleeding was well controlled. The patient tolerated the procedure well. The procedure was performed by myself. Decision to Disposition Date: May 28, 2018 Decision to Disposition Time: 21:27 Depart Departure Latest Vital Signs Vital Signs Date Time Temp Pulse Resp B/P (MAP) Pulse Ox O2 Delivery O2 Flow Rate FiO2 05/28/18 21:43 ??? 05/28/18 21:30 210/112 (144) 05/28/18 21:28 91 05/28/18 20:15 98.4 20 Room Air Impression: Primary Impression: Epistaxis Additional Impression: Hypertension Condition: Improved Disposition: HOME OR SELF-CARE Referrals: JOIE REDDY MD (PCP) New Scripts Amlodipine Besylate (AMLODIPINE BESYLATE) 5 Mg Tablet 1 TAB PO QDAY, #30 TAB 0 Refills Prov: EDSON UMAÑA MD 05/28/18 Patient Instructions: Hypertension (ED), Nosebleed (ED) Additional Instructions: Take Amlodipine 5mg once a day for blood pressure. Follow-up with ENT for re-evaluation for the nose bleeds. Problem Qualifiers Additional Impression: Hypertension Hypertension type: unspecified Qualified Codes: I10 - Essential (primary) hypertension EDSON UMAÑA MD May 28, 2018 20:18
[2018-05-28] MEDS ORDERED: TRANEXAMIC AC 1000 MG/10ML SDV 1,000 MG in NS(*) 0.9% 50 ML BAG 50 ML ONE (20:20)
[2018-05-28] MEDS ORDERED: ENT KIT ONE (20:20)
[2018-05-28] MEDS ORDERED: amLODIPine BESYL(*) 5 MG TAB PO ONE (21:10)
[2018-05-28] MEDS ORDERED: AMLO-111 PO (21:28)
[2018-05-28 21:30] VITALS: BP 210/112
== END 2018-05-28 21:40 | disposition home or self-care (01) ==
LOC: ER 20:33
DX: R04.0 Epistaxis (principal); I10 Essential (primary) hypertension
CPT/HCPCS: 30903; 99283; A9270; 99282

== ENCOUNTER → 2018-05-28 | Outpatient (CLI) | payer MEDICARE, OTHER ==
[2017-05-14 10:27] VITALS: BMI 26.6
[~2018-05-28] MED LIST changes: +DOCU100T19 PO
== END ==
LOC: AMB 19:55
PROVIDERS: ATTEND Nurse Practitioner
DX: R04.0 Epistaxis (principal); R03.0 Elevated blood-pressure reading, without diagnosis of hypertension
CPT/HCPCS: A0425; A0427

== ENCOUNTER 2018-06-01 17:42 | Emergency (ER) | payer MEDICARE, OTHER ==
[2017-05-14 10:27] VITALS: Wt 72.6 kg
[~2018-06-01 17:42] MED LIST changes: -DOCU100T19 PO
--- NOTE | 2018-06-01 17:46 | ER Report ---
History and Physical Time Seen By MD: 17:38 HPI/ROS CHIEF COMPLAINT: Bloody nose HISTORY OF PRESENT ILLNESS: 88-year-old male patient presents to emergency room with complaint of bloody nose. Patient states this is a fourth time that he's been in to the emergency room with a bloody nose over the past week. He states that he is frustrated he continues to have these bloody noses. He states that he has been started on new medication to help with this. He states that he has had persistent bloody noses. He states when he has blood his nose that he's had the blood come out of his eye. He denies any trauma to the nose, he denies any fevers or chills. He states he has been taking his medication as prescribed. He denies any vomiting or diarrhea. Patient does have some nausea. REVIEW OF SYSTEMS: Respiratory: No cough, no dyspnea. Cardiovascular: No chest pain, no palpitations. Gastrointestinal: As noted above Musculoskeletal: No back pain. Allergies: Coded Allergies: No Known Drug Allergies (Unverified , 06/01/18) Home Meds Active Scripts Amlodipine Besylate (AMLODIPINE BESYLATE) 5 Mg Tablet, 1 TAB PO QDAY, #30 TAB 0 Refills Prov:EDSON UMAÑA MD 05/28/18 Reported Medications Tramadol Hcl (TRAMADOL HCL) 50 Mg Tablet 05/26/18 Atorvastatin Calcium (ATORVASTATIN CALCIUM) 20 Mg Tablet 05/26/18 Acetaminophen (ARTHRITIS PAIN RELIEVER) 650 Mg Tablet.er, 650 MG PO BID 11/09/16 Tamsulosin Hcl (TAMSULOSIN HCL) 0.4 Mg Cap.er.24h, 0.4 MG PO DAILY, CAP 11/09/16 Discontinued Reported Medications Phenazopyridine Hcl (PHENAZOPYRIDINE HCL) 200 Mg Tablet, 200 MG PO TID PRN for SPASMS, #30 TAB 05/14/17 Famotidine (PEPCID) 20 Mg Tablet, 20 MG PO BID, #20 TAB 05/14/17 Sulfamethoxazole/Trimet 800-160 Mg Tab (BACTRIM DS TABLET) 1 Each Tablet, 1 TAB PO Q12H, #40 TAB 05/14/17 Acetaminophen With Codeine # 3 (TYLENOL WITH CODEINE #3 TABLET) 1 Each Tablet, 1 EACH PO Q6H PRN for PAIN, #20 TAB 05/14/17 Sulfamethoxazole/Trimet 800-160 Mg Tab (BACTRIM DS TABLET) 1 Each Tablet, 1 TAB PO BID, #30 TAB 05/11/17 Carvedilol (CARVEDILOL) 3.125 Mg Tab, 3.125 MG PO BID, TAB 11/09/16 Aspirin (ASPIRIN) 81 Mg Tab.chew, 81 MG PO QDAY, TAB.CHEW 05/28/16 Past Medical/Surgical History Patient has a past medical history of CVA, PVCs, hypertension, hyperlipidemia, past smoker, occasional reflux, bladder cancer, prostate obstruction, wrist fracture, pelvis fracture, hard of hearing. Patient has a surgical history of hernia surgery, surgery for bladder cancer, total hip replacement 3. Reviewed Nurses Notes: Yes Hx Smoking: Yes (2/3 PPD) Smoking Status: Current: Every Day Smoker Exposure to Second Hand Smoke?: No Hx Substance Use Disorder: No Hx Alcohol Use: No Constitutional Vital Sign - Last 24 Hours 06/01/18 06/01/18 06/01/18 06/01/18 17:42 17:45 17:45 17:52 Temp 98.3 Pulse 101 101 Resp 22 20 B/P (MAP) 165/79 165/79 (107) 144/92 (109) Pulse Ox 95 92 O2 Delivery Room Air 06/01/18 06/01/18 06/01/18 06/01/18 17:57 18:00 18:12 18:15 Pulse 99 85 Resp 13 12 B/P (MAP) 157/80 (105) 136/90 (105) Pulse Ox 92 90 Physical Exam General Appearance: The patient is alert, has no immediate need for airway protection and no current signs of toxicity. ENT: Patient does have blood clotted to his nose, clotting around his mouth and under his chin. Respiratory: Chest is non tender, lungs are clear to auscultation. Cardiac: regular rate and rhythm Gastrointestinal: Abdomen is soft and non tender, no masses, bowel sounds normal. Musculoskeletal: Neck: Neck is supple and non tender. Extremities have full range of motion and are non tender. Skin: No rashes or lesions. DIFFERENTIAL DIAGNOSIS: After history and physical exam differential diagnosis was considered for bloody nose, hypertension. Medical Decision Making Data Points Result Diagram: 06/01/18180306/01/181803 Laboratory Hematology Test 06/01/18 18:04 06/01/18 19:42 Red Blood Count 3.48 M/uL (4.00-5.60) Mean Corpuscular Volume 93.2 fL (80.0-96.0) Mean Corpuscular Hemoglobin 32.6 pg (26.0-33.0) Mean Corpuscular Hemoglobin Concent 34.9 g/dL (32.0-36.0) Red Cell Distribution Width 13.7 % (11.5-14.5) Mean Platelet Volume 9.5 fL (7.2-11.1) Neutrophils (%) (Auto) 59.6 % (39.4-72.5) Lymphocytes (%) (Auto) 27.0 % (17.6-49.6) Monocytes (%) (Auto) 6.1 % (4.1-12.4) Eosinophils (%) (Auto) 6.8 % (0.4-6.7) Basophils (%) (Auto) 0.5 % (0.3-1.4) Nucleated RBC Relative Count (auto) 0.0 /100WBC Neutrophils # (Auto) 3.6 K/uL (2.0-7.4) Lymphocytes # (Auto) 1.6 K/uL (1.3-3.6) Monocytes # (Auto) 0.4 K/uL (0.3-1.0) Eosinophils # (Auto) 0.4 K/uL (0.0-0.5) Basophils # (Auto) 0.0 K/uL (0.0-0.1) Nucleated RBC Absolute Count (auto) 0.00 K/uL Prothrombin Time 13.3 seconds (12.0-14.4) Prothromb Time International Ratio 1.01 Activated Partial Thromboplast Time 33 seconds (23-35) Sodium Level 139 mmol/L (137-145) Potassium Level 3.9 mmol/L (3.5-5.0) Chloride Level 107 mmol/L (98-107) Carbon Dioxide Level 23 mmol/L (22-30) Blood Urea Nitrogen 35 mg/dl (9-21) Creatinine 2.90 mg/dl (0.66-1.25) Glomerular Filtration Rate Calc 20.7 Random Glucose 128 mg/dl (75-110) Calcium Level 7.8 mg/dl (8.4-10.2) Total Bilirubin 0.4 mg/dl (0.2-1.3) Aspartate Amino Transf (AST/SGOT) 46 U/L (0-35) Alanine Aminotransferase (ALT/SGPT) 57 U/L (0-56) Alkaline Phosphatase 104 U/L (0-126) Total Protein 6.3 g/dl (6.3-8.2) Albumin 3.6 g/dl (3.5-5.0) Stool Occult Blood (IFOB) Negative (NEGATIVE) Chemistry Test 06/01/18 18:04 06/01/18 19:42 White Blood Count 6.0 k/uL (4.5-11.0) Red Blood Count 3.48 M/uL (4.00-5.60) Hemoglobin 11.3 g/dL (14.0-18.0) Hematocrit 32.5 % (42.0-52.0) Mean Corpuscular Volume 93.2 fL (80.0-96.0) Mean Corpuscular Hemoglobin 32.6 pg (26.0-33.0) Mean Corpuscular Hemoglobin Concent 34.9 g/dL (32.0-36.0) Red Cell Distribution Width 13.7 % (11.5-14.5) Platelet Count 153 K/uL (150-450) Mean Platelet Volume 9.5 fL (7.2-11.1) Neutrophils (%) (Auto) 59.6 % (39.4-72.5) Lymphocytes (%) (Auto) 27.0 % (17.6-49.6) Monocytes (%) (Auto) 6.1 % (4.1-12.4) Eosinophils (%) (Auto) 6.8 % (0.4-6.7) Basophils (%) (Auto) 0.5 % (0.3-1.4) Nucleated RBC Relative Count (auto) 0.0 /100WBC Neutrophils # (Auto) 3.6 K/uL (2.0-7.4) Lymphocytes # (Auto) 1.6 K/uL (1.3-3.6) Monocytes # (Auto) 0.4 K/uL (0.3-1.0) Eosinophils # (Auto) 0.4 K/uL (0.0-0.5) Basophils # (Auto) 0.0 K/uL (0.0-0.1) Nucleated RBC Absolute Count (auto) 0.00 K/uL Prothrombin Time 13.3 seconds (12.0-14.4) Prothromb Time International Ratio 1.01 Activated Partial Thromboplast Time 33 seconds (23-35) Glomerular Filtration Rate Calc 20.7 Calcium Level 7.8 mg/dl (8.4-10.2) Total Bilirubin 0.4 mg/dl (0.2-1.3) Aspartate Amino Transf (AST/SGOT) 46 U/L (0-35) Alanine Aminotransferase (ALT/SGPT) 57 U/L (0-56) Alkaline Phosphatase 104 U/L (0-126) Total Protein 6.3 g/dl (6.3-8.2) Albumin 3.6 g/dl (3.5-5.0) Stool Occult Blood (IFOB) Negative (NEGATIVE) Coagulation Test 06/01/18 18:04 Prothrombin Time 13.3 seconds Prothromb Time International Ratio 1.01 Activated Partial Thromboplast Time 33 seconds ED Course/Re-evaluation ED Course Patient was admitted on exam room, history and physical were obtained. Differential diagnoses were considered. On examination lungs were clear, heart was regular, patient did have bleeding from both nostrils. There is some indication that he had actually blood upper posterior duct and was coming out his eye. Kalyan-Synephrine was used and pressure was replaced using a nose clamp. On reevaluation patient continue to have small amount of bleeding. I did have him blow his nose and clear out the clotting. He did have significant clotting out through his nose as well as out of his mouth. We then sprayed lidocaine with epi and replaced the clamp. Patient had persistent bleeding after that. We did use TXA at that time. We sprayed 5 cc into his nostrils. We then put in some packing which was soaked in TXA. After 30 minutes that was removed. There is no bleeding noted. We left that out for 30 minutes and reevaluated. At that time he continued to not have any bleeding. Patient had a CBC, CMP, PT and PTT done. Patient did have a decrease in his hemoglobin from 13.9 on 05/27/18 to 11.3 today. Daughter had mentioned that he had black stools and an occult stool was done. That was negative. As of this time I don't feel that we have any reason to admit the patient, even though he requested to be admitted. I discussed the case with Dr. Morin, hospitalist, who agreed that there is no reason to admit. We will go ahead and discharge patient home at this time. He is to follow-up with Dr. Reddy on Wednesday as scheduled and follow-up with Dr. Jaeger, ENT, on Wednesday. He is to call tomorrow to make an appointment. I discussed this with the patient and his daughter and they verbalized understanding and agreement with plan. Decision to Disposition Date: Jun 01, 2018 Decision to Disposition Time: 20:21 Depart Departure Latest Vital Signs Vital Signs Date Time Temp Pulse Resp B/P (MAP) Pulse Ox O2 Delivery O2 Flow Rate FiO2 06/01/18 18:15 136/90 (105) 06/01/18 18:12 85 12 90 06/01/18 17:45 98.3 Room Air Impression: Primary Impression: Epistaxis Condition: Improved Disposition: HOME OR SELF-CARE Referrals: JOIE REDDY MD (PCP) KEAGAN JAEGER JR, MD Patient Instructions: Nosebleed (ED) Additional Instructions: Continue with normal diet. Get plenty of rest. Limit activity by pain. Follow up with Dr. Reddy on Wednesday as previously scheduled. Return to the ER if condition worsens. Follow up with Dr. Jaeger on Wednesday, call tomorrow to make an appointment. SANAZ BROWN Jun 01, 2018 17:45
[2018-06-01] MEDS ORDERED: LABETALOL HCL 100 MG/20ML VIAL IVP ONE (17:55)
[2018-06-01] MEDS ORDERED: ENT KIT ONE (17:55)
[2018-06-01 18:14] LABS: PLATELET COUNT, AUTOMATED 153 K/uL (150-450)
[2018-06-01] MEDS ORDERED: ONDANSETRON 4 MG/2 ML VIAL IVP ONE (18:25)
[2018-06-01] MEDS ORDERED: TRANEXAMIC AC 1000 MG/10ML SDV ONE (18:30)
[2018-06-01 18:34] LABS: INR 1.01
[2018-06-01 19:30] VITALS: BP 155/82
== END 2018-06-01 20:55 | disposition home or self-care (01) ==
LOC: ER 18:06
DX: R04.0 Epistaxis (principal)
CPT/HCPCS: 30901; 82274; 85025; 85610; 85730; 96374; 99283; J2405; J3490; 82040; 82247; 82310; 82374; 82435; 82565; 82947; 84075; 84132; 84155; 84295; 84450; 84460; 84520

== ENCOUNTER → 2018-06-01 | Outpatient (CLI) | payer MEDICARE, OTHER ==
[2015-11-17 12:59] VITALS: BMI 28.1
[~2018-06-01] MED LIST changes: +DOCU100T19 PO
== END ==
LOC: EDUNIT# 17:09 → AMB 17:09
PROVIDERS: ATTEND Nurse Practitioner
DX: R04.0 Epistaxis (principal)
CPT/HCPCS: A0425; A0426; A0427

== ENCOUNTER → 2018-06-03 | Outpatient (CLI) | payer MEDICARE, OTHER ==
[2017-05-14 10:27] VITALS: BMI 26.6
[2018-06-03 13:37] LABS: PLATELET COUNT, AUTOMATED 178 K/uL (150-450)
== END ==
LOC: LAB 12:43
PROVIDERS: ATTEND Internal Medicine Nephrology
DX: I12.9 Hypertensive chronic kidney disease with stage 1 through stage 4 chronic kidney disease, or unspecified chronic kidney disease (principal); N18.4 Chronic kidney disease, stage 4 (severe); R80.1 Persistent proteinuria, unspecified; N30.01 Acute cystitis with hematuria; D63.1 Anemia in chronic kidney disease
CPT/HCPCS: 36415; 81001; 82040; 82310; 82374; 82435; 82565; 82570; 82728; 82947; 83540; 83550; 83970; 84100; 84132; 84156; 84295; 84520; 85025

== ENCOUNTER 2018-06-04 13:02 | Emergency (ER) | payer MEDICARE, OTHER ==
[2017-05-14 10:27] VITALS: Wt 67.6 kg
[~2018-06-04 13:02] MED LIST changes: -DOCU100T19 PO
--- NOTE | 2018-06-04 13:09 | ER Report ---
History and Physical Time Seen By MD: 13:09 Hx. of Stated Complaint: hi blood pressure nose bleed HPI/ROS CHIEF COMPLAINT: Bloody nose, hypertension HISTORY OF PRESENT ILLNESS: 88-year-old male patient presents to emergency room with complaint of bloody nose and hypertension. Patient states that he's been seen multiple times in the emergency room over the last week and a half for this. He did follow-up with Dr. Catalino SONG for chemical cauterization. He also follow-up with his primary care provider D his blood pressure control. Patient was restarted on his carvedilol, is also taking amlodipine as needed to help ke ep his pressure down. He states that he's been taking his medications. He took his amlodipine at 3:00 this morning. He did have a bloody nose this morning. When he was picked up by EMS his blood pressure was 220 over 120s. REVIEW OF SYSTEMS: Respiratory: No cough, no dyspnea. Cardiovascular: No chest pain, no palpitations. Gastrointestinal: No vomiting, no abdominal pain. Musculoskeletal: No back pain. Allergies: Coded Allergies: No Known Drug Allergies (Unverified , 06/04/18) Home Meds Active Scripts Amlodipine Besylate (AMLODIPINE BESYLATE) 5 Mg Tablet, 1 TAB PO QDAY, #30 TAB 0 Refills Prov:EDSON UMAÑA MD 05/28/18 Reported Medications Carvedilol (CARVEDILOL) 3.125 Mg Tab, 3.125 MG PO BID, TAB 06/04/18 Tramadol Hcl (TRAMADOL HCL) 50 Mg Tablet 05/26/18 Atorvastatin Calcium (ATORVASTATIN CALCIUM) 20 Mg Tablet 05/26/18 Acetaminophen (ARTHRITIS PAIN RELIEVER) 650 Mg Tablet.er, 650 MG PO BID 11/09/16 Tamsulosin Hcl (TAMSULOSIN HCL) 0.4 Mg Cap.er.24h, 0.4 MG PO DAILY, CAP 11/09/16 Past Medical/Surgical History Patient has a past medical history of PVCs, hypertension, hyperlipidemia, smoker for over 70 years, reflux, bladder cancer, urinary obstruction, arthritis, wrist fracture, pelvis fracture, back pain, hard of hearing, stroke. Patient has a surgical history of hip replacement 3, surgery for bladder cancer, cystoscopy, hernia repair. Patient has a family medical history of cancer, diabetes. Reviewed Nurses Notes: Yes Hx Smoking: Yes (2/3 PPD) Smoking Status: Current: Every Day Smoker Exposure to Second Hand Smoke?: No Hx Substance Use Disorder: No Hx Alcohol Use: No Constitutional Vital Sign - Last 24 Hours 06/04/18 06/04/18 06/04/18 06/04/18 13:02 13:03 13:05 13:32 Temp 98.5 Pulse 79 87 67 Resp 18 B/P (MAP) 150/96 (114) 150/96 Pulse Ox 93 92 95 O2 Delivery Room Air Room Air Room Air 06/04/18 06/04/18 06/04/18 06/04/18 13:47 14:00 14:02 14:07 Pulse 80 69 B/P (MAP) 184/101 (128) 193/54 (100) Pulse Ox 92 91 O2 Delivery Room Air Room Air 06/04/18 06/04/18 06/04/18 06/04/18 14:25 14:30 14:37 14:46 Pulse 65 B/P (MAP) 171/78 (109) 160/89 (112) 165/85 (111) Pulse Ox 90 O2 Delivery Room Air 06/04/18 06/04/18 06/04/18 06/04/18 14:51 15:00 15:05 15:38 Pulse 76 72 B/P (MAP) 158/92 (114) 168/82 (110) Pulse Ox 97 94 O2 Delivery Room Air Room Air 06/04/18 06/04/18 06/04/18 06/04/18 16:00 16:05 16:10 16:25 Pulse 88 64 ??? B/P (MAP) 179/94 (122) 196/101 (132) Pulse Ox 87 95 O2 Delivery Room Air 06/04/18 06/04/18 06/04/18 06/04/18 16:30 16:40 16:44 16:55 Pulse ??? 61 B/P (MAP) 176/90 (118) 173/90 (117) Pulse Ox 94 06/04/18 06/04/18 17:00 17:10 Pulse 66 B/P (MAP) 143/81 (101) Pulse Ox 91 Physical Exam General Appearance: The patient is alert, has no immediate need for airway protection and no current signs of toxicity. ENT: Patient does have bleeding from both nares, seems to more prolific on the right. Respiratory: Chest is non tender, lungs are clear to auscultation. Cardiac: regular rate and rhythm Gastrointestinal: Abdomen is soft and non tender, no masses, bowel sounds normal. Musculoskeletal: Neck: Neck is supple and non tender. Extremities have full range of motion and are non tender. Skin: No rashes or lesions. DIFFERENTIAL DIAGNOSIS: After history and physical exam differential diagnosis was considered for epistaxis, hypertension. Medical Decision Making Data Points Result Diagram: 06/04/18 1300 06/04/18 1300 Laboratory Hematology Test 06/04/18 13:00 06/04/18 16:24 Red Blood Count 3.46 M/uL (4.00-5.60) Mean Corpuscular Volume 95.1 fL (80.0-96.0) Mean Corpuscular Hemoglobin 32.8 pg (26.0-33.0) Mean Corpuscular Hemoglobin Concent 34.5 g/dL (32.0-36.0) Red Cell Distribution Width 13.9 % (11.5-14.5) Mean Platelet Volume 9.8 fL (7.2-11.1) Neutrophils (%) (Auto) 53.9 % (39.4-72.5) Lymphocytes (%) (Auto) 32.5 % (17.6-49.6) Monocytes (%) (Auto) 6.2 % (4.1-12.4) Eosinophils (%) (Auto) 6.7 % (0.4-6.7) Basophils (%) (Auto) 0.7 % (0.3-1.4) Nucleated RBC Relative Count (auto) 0.0 /100WBC Neutrophils # (Auto) 4.1 K/uL (2.0-7.4) Lymphocytes # (Auto) 2.5 K/uL (1.3-3.6) Monocytes # (Auto) 0.5 K/uL (0.3-1.0) Eosinophils # (Auto) 0.5 K/uL (0.0-0.5) Basophils # (Auto) 0.1 K/uL (0.0-0.1) Nucleated RBC Absolute Count (auto) 0.00 K/uL Sodium Level 138 mmol/L (137-145) Potassium Level 3.5 mmol/L (3.5-5.0) Chloride Level 103 mmol/L (98-107) Carbon Dioxide Level 22 mmol/L (22-30) Blood Urea Nitrogen 40 mg/dl (9-21) Creatinine 3.00 mg/dl (0.66-1.25) Glomerular Filtration Rate Calc 19.9 Random Glucose 116 mg/dl (75-110) Calcium Level 8.1 mg/dl (8.4-10.2) Total Bilirubin 0.6 mg/dl (0.2-1.3) Aspartate Amino Transf (AST/SGOT) 30 U/L (0-35) Alanine Aminotransferase (ALT/SGPT) 42 U/L (0-56) Alkaline Phosphatase 115 U/L (0-126) B-Type Natriuretic Peptide 122 pg/ml (0-100) Total Protein 7.1 g/dl (6.3-8.2) Albumin 3.9 g/dl (3.5-5.0) Urine Color Straw Urine Clarity Clear Urine pH 6.0 pH (4.8-9.5) Urine Specific Holman 1.003 Urine Protein Negative mg/dL (NEGATIVE) Urine Glucose (UA) Negative mg/dL (NEGATIVE) Urine Ketones Negative mg/dL (NEGATIVE) Urine Blood Negative (NEGATIVE) Urine Nitrite Negative (NEGATIVE) Urine Bilirubin Negative (NEGATIVE) Urine Urobilinogen Negative mg/dL (0.2-1.9) Urine Leukocyte Esterase Small (NEGATIVE) Urine RBC None /HPF (0-2/HPF) Urine WBC 12 /HPF (0-5/HPF) Urine Squamous Epithelial Cells Many /LPF (</=FEW) Urine Bacteria Negative /HPF (NONE-FEW) Urine Mucus None /HPF (NONE-FEW) Chemistry Test 06/04/18 13:00 06/04/18 16:24 White Blood Count 7.7 k/uL (4.5-11.0) Red Blood Count 3.46 M/uL (4.00-5.60) Hemoglobin 11.4 g/dL (14.0-18.0) Hematocrit 32.9 % (42.0-52.0) Mean Corpuscular Volume 95.1 fL (80.0-96.0) Mean Corpuscular Hemoglobin 32.8 pg (26.0-33.0) Mean Corpuscular Hemoglobin Concent 34.5 g/dL (32.0-36.0) Red Cell Distribution Width 13.9 % (11.5-14.5) Platelet Count 170 K/uL (150-450) Mean Platelet Volume 9.8 fL (7.2-11.1) Neutrophils (%) (Auto) 53.9 % (39.4-72.5) Lymphocytes (%) (Auto) 32.5 % (17.6-49.6) Monocytes (%) (Auto) 6.2 % (4.1-12.4) Eosinophils (%) (Auto) 6.7 % (0.4-6.7) Basophils (%) (Auto) 0.7 % (0.3-1.4) Nucleated RBC Relative Count (auto) 0.0 /100WBC Neutrophils # (Auto) 4.1 K/uL (2.0-7.4) Lymphocytes # (Auto) 2.5 K/uL (1.3-3.6) Monocytes # (Auto) 0.5 K/uL (0.3-1.0) Eosinophils # (Auto) 0.5 K/uL (0.0-0.5) Basophils # (Auto) 0.1 K/uL (0.0-0.1) Nucleated RBC Absolute Count (auto) 0.00 K/uL Glomerular Filtration Rate Calc 19.9 Calcium Level 8.1 mg/dl (8.4-10.2) Total Bilirubin 0.6 mg/dl (0.2-1.3) Aspartate Amino Transf (AST/SGOT) 30 U/L (0-35) Alanine Aminotransferase (ALT/SGPT) 42 U/L (0-56) Alkaline Phosphatase 115 U/L (0-126) B-Type Natriuretic Peptide 122 pg/ml (0-100) Total Protein 7.1 g/dl (6.3-8.2) Albumin 3.9 g/dl (3.5-5.0) Urine Color Straw Urine Clarity Clear Urine pH 6.0 pH (4.8-9.5) Urine Specific Holman 1.003 Urine Protein Negative mg/dL (NEGATIVE) Urine Glucose (UA) Negative mg/dL (NEGATIVE) Urine Ketones Negative mg/dL (NEGATIVE) Urine Blood Negative (NEGATIVE) Urine Nitrite Negative (NEGATIVE) Urine Bilirubin Negative (NEGATIVE) Urine Urobilinogen Negative mg/dL (0.2-1.9) Urine Leukocyte Esterase Small (NEGATIVE) Urine RBC None /HPF (0-2/HPF) Urine WBC 12 /HPF (0-5/HPF) Urine Squamous Epithelial Cells Many /LPF (</=FEW) Urine Bacteria Negative /HPF (NONE-FEW) Urine Mucus None /HPF (NONE-FEW) Urinalysis Test 06/04/18 16:24 Urine Color Straw Urine Clarity Clear Urine pH 6.0 pH (4.8-9.5) Urine Specific Holman 1.003 Urine Protein Negative mg/dL (NEGATIVE) Urine Glucose (UA) Negative mg/dL (NEGATIVE) Urine Ketones Negative mg/dL (NEGATIVE) Urine Blood Negative (NEGATIVE) Urine Nitrite Negative (NEGATIVE) Urine Bilirubin Negative (NEGATIVE) Urine Urobilinogen Negative mg/dL (0.2-1.9) Urine Leukocyte Esterase Small (NEGATIVE) Urine RBC None /HPF (0-2/HPF) Urine WBC 12 /HPF (0-5/HPF) Urine Squamous Epithelial Cells Many /LPF (</=FEW) Urine Bacteria Negative /HPF (NONE-FEW) Urine Mucus None /HPF (NONE-FEW) EKG/Imaging EKG Interpretation 12 lead EKG: Rhythm: normal sinus rhythm with occasional PVC, ventricular rate of 80 bpm Gilbert: normal QRS: normal ST segments: normal ED Course/Re-evaluation ED Course Patient was admitted to an exam room, history and physical were obtained. Differential diagnoses were considered. On examination lungs are clear, heart is regular, abdomen is soft and nontender. Patient does have bleeding from both nostrils. Bleeding seems to be pretty well slow down at this time. IV was started, a CBC, CMP, urinalysis were obtained. Lab results were unremarkable. I did treat the patient with some labetalol. Did bring his blood pressure down. We then placed TXA-soaked cotton balls in the both nostrils. Let us it. After proximally 30 minutes that we remove the packing. Patient didn't have any epistaxis. Due to the high blood pressure I believe that his kidneys could be a portion the problem. I discussed the case with Dr. Cruz, jailer/training officer at [facility] ([place], [place]). Patient is a patient of Dr. Jacobs and we discussed his blood pressure. I asked him about possible MRA or ultrasound of the kidneys. His recommendation was not to do that as there would not be any treatment. He recommended increasing the amlodipine to 5 mg twice a day and have him follow-up with his primary care provider. I discussed this with the patient. They would have him continue taking his carvedilol as well as amlodipine twice a day. Patient requested that he be admitted to the hospital. I did not feel this was necessary. I did speak with Dr. Morenita Morin, hospitalist, who agreed that this is not a necessity. She encouraged that he follow-up with Dr. Bae as well as continuing to deal with his primary care provider to make sure that his blood pressure is treated appropriately. I discussed this with the patient and his family and they verbalized understanding and agreement with plan. Decision to Disposition Date: Jun 04, 2018 Decision to Disposition Time: 17:00 Depart Departure Latest Vital Signs Vital Signs Date Time Temp Pulse Resp B/P (MAP) Pulse Ox O2 Delivery O2 Flow Rate FiO2 06/04/18 17:10 66 91 06/04/18 17:00 143/81 (101) 06/04/18 16:05 Room Air 06/04/18 13:05 98.5 18 Impression: Primary Impression: Epistaxis Condition: Improved Disposition: HOME OR SELF-CARE Referrals: JOIE REDDY MD (PCP) Patient Instructions: Nosebleed (ED) Additional Instructions: Take the Amlodipine 5mg twice a day. Limit activity by how you are feeling. Increase fluid intake. Continue the carvedilol 3.125mg (1 tab) twice a day. Follow up with Dr. Cruz as scheduled on June 08. Return to the ER if condition worsens. Follow up with Dr. Bae next week for re-evaluation. SANAZ BROWN Jun 04, 2018 13:09
[2018-06-04] MEDS ORDERED: CAR3.125 PO (13:14)
[2018-06-04] MEDS ORDERED: TRANEXAMIC AC 1000 MG/10ML SDV ONE (13:20)
[2018-06-04 13:27] LABS: PLATELET COUNT, AUTOMATED 170 K/uL (150-450)
[2018-06-04] MEDS ORDERED: LABETALOL HCL 100 MG/20ML VIAL IVP ONE ×2 (14:35→16:45)
--- NOTE | 2018-06-04 16:00 | EKG ---
FACILITY: [facility] - [place] PATIENT NAME: JOE BARAJAS : [id number] MR: [id number] V: [id number] EXAM DATE: ORDERING PHYSICIAN: SANAZ BROWN TECHNOLOGIST: Test Reason : Irregular heart rate Blood Pressure : / mmHG Vent. Rate : 080 BPM Atrial Rate : 080 BPM P-R Int : 188 ms QRS Dur : 080 ms QT Int : 382 ms P-R-T Axes : 044 053 067 degrees QTc Int : 440 ms Sinus rhythm with occasional premature ventricular complexes Otherwise normal ECG When compared with ECG of 27-MAY-2018 12:42, No significant change was found Confirmed by CHRISTINE FULLER ([id number]) on 06/05/2018 4:29:54 AM Referred By: Confirmed By:CHRISTINE FULLER
[2018-06-04] MEDS ORDERED: amLODIPine BESYL(*) 5 MG TAB PO ONE (16:30)
[2018-06-04 17:00] VITALS: BP 143/81
== END 2018-06-04 17:24 | disposition home or self-care (01) ==
LOC: ER 13:15
DX: R04.0 Epistaxis (principal); F17.210 Nicotine dependence, cigarettes, uncomplicated
CPT/HCPCS: 30901; 81001; 83880; 85025; 87088; 93005; 96374; 96376; 99284; A9270; J3490; 82040; 82247; 82310; 82374; 82435; 82565; 82947; 84075; 84132; 84155; 84295; 84450; 84460; 84520

== ENCOUNTER → 2018-06-04 | Outpatient (CLI) | payer MEDICARE, OTHER ==
[2017-05-14 10:27] VITALS: BMI 26.6
[~2018-06-04] MED LIST changes: +DOCU100T19 PO
== END ==
LOC: AMB 12:39
PROVIDERS: ATTEND Nurse Practitioner
DX: R04.0 Epistaxis (principal); I10 Essential (primary) hypertension; N19 Unspecified kidney failure
CPT/HCPCS: A0425; A0427

== ENCOUNTER 2018-06-29 11:55 | Outpatient (RCR) | payer MEDICARE, OTHER ==
[2017-05-14 10:27] VITALS: BMI 26.6
[2018-06-22 11:50] VITALS: BP 151/75
[2018-06-22] MEDS: NS(*) 0.9% 100 ML BAG 100 ML IVPB PRN (12:09)
[2018-06-22] MEDS: IRON SUCROSE 100 MG/5 ML VIAL IVP PRN (12:10)
[2018-06-22 13:16] VITALS: BP 142/76
[~2018-06-29 11:55] MED LIST changes: +DEXTROSE 5%(*) 100 ML BAG 100 ML IVPB PRN; +DOCU100T19 PO; +LIDOCAINE/SOD BICARB 8.4% SYR ID PRN
[2018-06-29 12:02] VITALS: BP 165/76
[2018-06-29] MEDS: NS(*) 0.9% 100 ML BAG 100 ML IVPB PRN (12:07)
[2018-06-29] MEDS: IRON SUCROSE 100 MG/5 ML VIAL IVP PRN (12:08)
== END 2018-07-20 12:08 | disposition home or self-care (01) ==
LOC: SPU 11:55
PROVIDERS: ATTEND Internal Medicine Nephrology
DX: N18.4 Chronic kidney disease, stage 4 (severe) (principal); D63.1 Anemia in chronic kidney disease
CPT/HCPCS: 96365; J1756; J7050

== ENCOUNTER → 2018-08-24 | Outpatient (CLI) | payer MEDICARE, OTHER ==
[2017-05-14 10:27] VITALS: BMI 26.6
[~2018-08-24] MED LIST changes: -DEXTROSE 5%(*) 100 ML BAG 100 ML IVPB PRN; -LIDOCAINE/SOD BICARB 8.4% SYR ID PRN
[2018-08-24 13:59] LABS: PLATELET COUNT, AUTOMATED 146 K/uL (150-450)
== END ==
LOC: LAB 13:22
PROVIDERS: ATTEND Internal Medicine Nephrology
DX: N18.4 Chronic kidney disease, stage 4 (severe) (principal); R80.1 Persistent proteinuria, unspecified
CPT/HCPCS: 36415; 82040; 82310; 82374; 82435; 82565; 82570; 82728; 82947; 83540; 83970; 84100; 84132; 84156; 84295; 84520; 85025

== ENCOUNTER → 2018-09-13 | Outpatient (CLI) | payer MEDICARE, OTHER ==
[2017-05-14 10:27] VITALS: BMI 26.6
[~2018-09-13] MED LIST changes: -AMLO-111 PO; +AMLO-125 PO; -AMLO2.5T76 PO; +AMLO2.5T78 PO
== END ==
LOC: LAB 10:54
DX: N30.01 Acute cystitis with hematuria (principal); R82.79 Other abnormal findings on microbiological examination of urine
CPT/HCPCS: 81001; 87088